=== PATIENT | female | born 1950 | race Caucasian/White ===

== ENCOUNTER 2017-10-22 20:52 | Emergency (ER) | payer OTHER ==
[~2017-10-22] VITALS: Ht 177.8 cm; Wt 52.2 kg
[2017-10-22 20:57] VITALS: Ht 177.8 cm; Wt 52.2 kg
[2017-10-22 23:56] VITALS: BP 113/69
== END 2017-10-22 23:56 | disposition home or self-care (01) ==
LOC: ED 20:52
DX: S42.202A Unspecified fracture of upper end of left humerus, initial encounter for closed fracture (principal); M25.561 Pain in right knee; M25.571 Pain in right ankle and joints of right foot; M25.521 Pain in right elbow; I10 Essential (primary) hypertension; E03.9 Hypothyroidism, unspecified; W10.9XXA Fall (on) (from) unspecified stairs and steps, initial encounter; Y93.89 Activity, other specified; Y92.89 Other specified places as the place of occurrence of the external cause; Y99.8 Other external cause status
CPT/HCPCS: J1885

== ENCOUNTER 2018-12-03 21:31 | Emergency (ER) | payer OTHER ==
[~2018-12-03] VITALS: Ht 175.3 cm; Wt 55.3 kg
[2018-12-03 22:04] VITALS: Ht 175.3 cm; Wt 55.3 kg
[2018-12-04 01:18] VITALS: BP 108/63
== END 2018-12-04 01:18 | disposition home or self-care (01) ==
LOC: ED 21:31
DX: S60.051A Contusion of right little finger without damage to nail, initial encounter (principal); S50.811D Abrasion of right forearm, subsequent encounter; M19.041 Primary osteoarthritis, right hand; Z98.890 Other specified postprocedural states; W10.8XXA Fall (on) (from) other stairs and steps, initial encounter; Y93.01 Activity, walking, marching and hiking; Y92.89 Other specified places as the place of occurrence of the external cause; Y99.8 Other external cause status
CPT/HCPCS: Q0092